=== PATIENT | female | born 1990 | race Two or more races ===

== ENCOUNTER 2024-06-01 00:40 | Emergency (ER) | payer MEDICAID ==
[~2024-06-01] VITALS: Ht 167.6 cm; Wt 83.9 kg
[2024-06-01 01:23] VITALS: BP 132/86; TEMP 100.2; O2SAT 99
[2024-06-01] MEDS ORDERED: ACETAMINOPHEN 325 MG TABLET PO ONE (01:30)
[2024-06-01] MEDS ORDERED: IBUPROFEN 400 MG TABLET ONE (01:30)
[2024-06-01] MEDS: IBUPROFEN 400 MG TABLET PO ONE (01:32)
[2024-06-01 02:43] LABS: APPEARANCE,URINE CLEAR (CLEAR); BILIRUBIN,URINE NEGATIVE (NEGATIVE); BLOOD, URINE 1+ Ery/uL (NEGATIVE); COLOR,URINE YELLOW (YELLOW); KETONES,URINE TRACE mg/dL (NEGATIVE); LEUKOCYTE ESTERASE ,URINE 2+ (NEGATIVE); NITRITE, URINE NEGATIVE (NEGATIVE); PH,URINE 6.5 (5.0-8.0); PROTEIN,URINE NEGATIVE (NEGATIVE); UGLUCOSE NEGATIVE (NEGATIVE); UROBILINOGEN,URINE 0.2 EU/dL (0.2)
[2024-06-01 02:45] LABS: PREGNANCY TEST URINE QUAL NEGATIVE (NEGATIVE)
[2024-06-01 02:56] LABS: ADD URINE CULTURE YES; BACTERIA,URINE Few /HPF (None Seen)
== END 2024-06-01 03:05 | disposition home or self-care (01) ==
LOC: ER 01:08
DX: N39.0 Urinary tract infection, site not specified (principal); R10.2 Pelvic and perineal pain
CPT/HCPCS: 81001; 84703-TC; 87086-TC